=== PATIENT | female | born 1965 | race African-American/Black ===

== ENCOUNTER 2018-02-13 11:49 | Emergency (ER) | payer OTHER ==
[~2018-02-13] VITALS: Ht 160 cm; Wt 59.1 kg
[2018-02-13] MEDS ORDERED: OMEP20 PO (12:00)
[2018-02-13 12:54] VITALS: BP 148/79
== END 2018-02-13 13:27 | disposition home or self-care (01) ==
LOC: EMS 11:49
DX: H60.92 Unspecified otitis externa, left ear (principal); R03.0 Elevated blood-pressure reading, without diagnosis of hypertension; R05 Cough
CPT/HCPCS: 99283

== ENCOUNTER 2018-03-24 20:15 | Emergency (ER) | payer OTHER ==
[~2018-03-24] VITALS: Ht 154.9 cm; Wt 62.3 kg
[~2018-03-24 20:15] MED LIST: OMEP20 PO
[2018-03-24] MEDS ORDERED: DOCUSATE SODIUM 100 MG CAPSULE PO ONE (21:00)
[2018-03-24 22:36] VITALS: BP 141/88
== END 2018-03-24 23:15 | disposition left against medical advice (07) ==
LOC: EMS 20:17
DX: K59.00 Constipation, unspecified (principal)
CPT/HCPCS: 99283